=== PATIENT | female | born 1945 | race Caucasian/White ===

== ENCOUNTER → 2016-10-19 | Outpatient (REF) | payer MEDICARE | LOC: M LAB REF 09:09 | PROVIDERS: ATTEND Physician Assistant | DX: J03.90 Acute tonsillitis, unspecified (principal) ==

== ENCOUNTER → 2017-02-10 | Outpatient (CLI) | payer MEDICARE ==
--- NOTE | 2017-02-11 06:45 | REP ---
RIGHT SHOULDER, THREE VIEWS: HISTORY: Contusion. COMPARISON: 04/03/2011. There is no acute fracture or dislocation. There is narrowing of the acromioclavicular joint with associated osteophyte formation. IMPRESSION: Degenerative change as described above. Signed by Andrés Nicole MD 02/11/2017 08:27 A
== END ==
LOC: M WUC 16:22
PROVIDERS: ATTEND Physician Assistant
DX: S40.011A Contusion of right shoulder, initial encounter (principal); X58.XXXA Exposure to other specified factors, initial encounter; Y93.9 Activity, unspecified; Y92.9 Unspecified place or not applicable; Y99.8 Other external cause status

== ENCOUNTER → 2017-05-28 | Outpatient (REF) | payer MEDICARE | LOC: M LAB REF 09:20 | PROVIDERS: ATTEND Physician Assistant | DX: R30.0 Dysuria (principal) ==

== ENCOUNTER 2017-12-10 11:10 | Emergency (ER) | payer MEDICARE ==
[2017-12-10 12:10] LABS: BASO # 0.1 10^3/uL (0.0-0.2); BASO % 0.6 % (0.0-1.0); EOS # 0.2 10^3/uL (0.0-0.50); EOS % 2.7 % (0.0-3.0); HEMATOCRIT 37.7 % (36.0-47.0); HEMOGLOBIN 12.4 g/dl (12.0-15.5); IMMATURE GRANULOCYTE % 0.3 % (0-3.0); LYMPH # 2.4 10^3/uL (1.5-4.5); LYMPH % 31.4 % (24.0-44.0); MEAN CORPUSCULAR HEMOGLOBIN 30.2 pg (27.0-33.0); MEAN CORPUSCULAR HGB CONC 32.9 g/dl (32.0-36.5); MONO # 0.6 10^3/uL (0.0-0.8); MONO % 7.9 % (0.0-5.0); NEUTROPHILS # 4.4 10^3/uL (1.8-7.7); NEUTROPHILS % 57.1 % (36.0-66.0); PLATELET COUNT, AUTOMATED 222 10^3/uL (150-450); RED CELL DISTRIBUTION WIDTH 12.6 % (11.5-14.5); WHITE BLOOD COUNT 7.8 10^3/uL (4.0-10.0)
[2017-12-10 12:25] LABS: INR 0.98; PROTHROMBIN TIME 13.1 SECONDS (12.4-14.5)
[2017-12-10 12:26] LABS: PARTIAL THROMBOPLASTIN TIME 37.1 SECONDS (26.8-37.9)
[2017-12-10 13:01] LABS: ANION GAP 7 MEQ/L (8-16); BLOOD UREA NITROGEN 15 MG/DL (7-18); CALCIUM LEVEL 8.7 MG/DL (8.8-10.2); CARBON DIOXIDE LEVEL 26 MEQ/L (21-32); CHLORIDE LEVEL 106 MEQ/L (98-107); CK-MB VALUE MASS 1.1 NG/ML (<3.6); CPK CREATINE PHOSPHOKINASE 90 U/L (26-192); CREATININE FOR GFR 0.84 MG/DL (0.55-1.30); GLOMERULAR FILTRATION RATE > 60.0 (>39); GLUCOSE, FASTING 187 MG/DL (70-100); MB/CK RELATIVE INDEX 1.22 (< OR =4); POTASSIUM SERUM 4.3 MEQ/L (3.5-5.1); SODIUM LEVEL 139 MEQ/L (136-145); TROPONIN I < 0.02 NG/ML (< 0.10)
[2017-12-10] MEDS: AZITHROMYCIN 250 MG TAB PO (15:39)
== END 2017-12-10 17:45 | disposition home or self-care (01) ==
LOC: M ED 11:10
DX: H53.9 Unspecified visual disturbance (principal); R91.8 Other nonspecific abnormal finding of lung field; I67.82 Cerebral ischemia; I65.23 Occlusion and stenosis of bilateral carotid arteries; I10 Essential (primary) hypertension; J44.9 Chronic obstructive pulmonary disease, unspecified; J45.909 Unspecified asthma, uncomplicated; E78.5 Hyperlipidemia, unspecified; K22.70 Barrett's esophagus without dysplasia; R73.03 Prediabetes; Z91.040 Latex allergy status; Z88.2 Allergy status to sulfonamides; Z79.899 Other long term (current) drug therapy; Z79.82 Long term (current) use of aspirin; Z79.51 Long term (current) use of inhaled steroids; Z79.84 Long term (current) use of oral hypoglycemic drugs
CPT/HCPCS: 70551

== ENCOUNTER 2018-07-02 16:12 | Emergency (ER) | payer MEDICARE ==
[2018-07-02] MEDS: ACETAMINOPHEN 325 MG TAB PO (19:10)
== END 2018-07-02 19:31 | disposition home or self-care (01) ==
LOC: M ED 16:12
DX: S63.501A Unspecified sprain of right wrist, initial encounter (principal); S00.83XA Contusion of other part of head, initial encounter; S60.041A Contusion of right ring finger without damage to nail, initial encounter; W19.XXXA Unspecified fall, initial encounter; Y92.092 Bedroom in other non-institutional residence as the place of occurrence of the external cause; Y93.89 Activity, other specified; Y99.9 Unspecified external cause status; I10 Essential (primary) hypertension; E78.5 Hyperlipidemia, unspecified; J44.9 Chronic obstructive pulmonary disease, unspecified; Z87.891 Personal history of nicotine dependence; Z79.82 Long term (current) use of aspirin; Z79.84 Long term (current) use of oral hypoglycemic drugs; Z79.899 Other long term (current) drug therapy; Z88.1 Allergy status to other antibiotic agents; Z91.040 Latex allergy status
CPT/HCPCS: 73110

== ENCOUNTER → 2018-07-08 | Outpatient (CLI) | payer MEDICARE | LOC: M WUC 15:26 | DX: M25.531 Pain in right wrist (principal); S60.211S Contusion of right wrist, sequela | CPT/HCPCS: 73110 ==

== ENCOUNTER → 2018-08-08 | Outpatient (CLI) | payer MEDICARE | LOC: M RAD 09:27 | DX: Z12.31 Encounter for screening mammogram for malignant neoplasm of breast (principal); Z79.899 Other long term (current) drug therapy; R92.1 Mammographic calcification found on diagnostic imaging of breast | CPT/HCPCS: 77067 ==

== ENCOUNTER 2018-12-19 09:46 | Day surgery (SDC) | payer MEDICARE ==
[~2018-12-19] VITALS: Ht 152.4 cm; Wt 81.6 kg
[~2018-12-19 09:46] MED LIST: ASPI-1 PO; ASPI81TA26 PO; AZIT-12 PO; CENT1TAB PO; CLAR10CA3 PO; CYCL5TAB PO; DULE100A INH; K-TA10TA2 PO; LASI40TA9 PO; LEG1TAB PO; LISI-538 PO; LISI20TA PO; LISINOP/HCTZ; MAGN64TASA PO; MECL1CHW PO; METF500T13 PO; MIRA3350 PO; NITR-67 PO; NS 1,000 ML IV ONE; OMEP40CA2 PO; PRAV40TA2 PO; PROAAER10 INH; PROBCAP14 PO; VITA100067 PO
--- NOTE | 2018-12-19 11:21 | ROOR ---
Patient Name: Jaimie Villalta Procedure Date: 12/19/2018 11:03 AM Date of : 1945 Age: 73 Room: [facility] Gender: Female Note Status: Finalized Procedure: Upper GI endoscopy Indications: Heartburn Providers: Brijesh LOVE MD Referring MD: YRIS CATES MD Requesting Provider: Medicines: Monitored Anesthesia Care Complications: No immediate complications. Procedure: Pre-Anesthesia Assessment: - The heart rate, respiratory rate, oxygen saturations, blood pressure, adequacy of pulmonary ventilation, and response to care were monitored throughout the procedure. The Endoscope was introduced through the mouth, and advanced to the second part of duodenum. The upper GI endoscopy was accomplished without difficulty. The patient tolerated the procedure well. Findings: The Z-line was variable and was found at the gastroesophageal junction. This was biopsied with a cold forceps for histology. The examined esophagus was normal. Small Hiatal Hernia. The entire examined stomach was normal. (large compliant) The examined duodenum was normal. Impression: - Z-line variable, at the gastroesophageal junction. Biopsied. - Normal esophagus. - Small Hiatal Hernia. - Normal stomach. - Normal examined duodenum. Recommendation: - Gastroparesis diet: - Eat smaller, more frequent meals throughout the day. - Low fat diet. - Liquid/soft foods are tolerated better than solid foods. - Low fiber/well cooked vegetables are tolerated better than high fiber/fibrous foods/raw vegetables. - Avoid medications that inhibit gastric/intestinal motility such as narcotic medications. Birjesh Love MD Brijesh LOEV MD 12/19/2018 11:21:16 AM Electronically signed by Brijesh LOVE MD Number of Addenda: 0 Note Initiated On: 12/19/2018 11:03 AM Estimated Blood Loss: Estimated blood loss: none.
[2018-12-19] MEDS ORDERED: PROPOFOL 200 MG/20 ML VIAL As Ordered ONE ×2 (11:24→11:36)
[2018-12-19] MEDS ORDERED: LIDOCAINE 2% INJ 100 MG/5 ML SDV (FOR ANES.) As Ordered ONE (11:24)
--- NOTE | 2018-12-19 11:47 | ROOR ---
Patient Name: Jaimie Villalta Procedure Date: 12/19/2018 11:04 AM Date of : 1945 Age: 73 Room: [facility] Gender: Female Note Status: Finalized Procedure: Colonoscopy Indications: Generalized abdominal pain Providers: Brijesh LOVE MD Referring MD: YRIS CATES MD Requesting Provider: Medicines: Monitored Anesthesia Care Complications: No immediate complications. Procedure: Pre-Anesthesia Assessment: - The heart rate, respiratory rate, oxygen saturations, blood pressure, adequacy of pulmonary ventilation, and response to care were monitored throughout the procedure. The Colonoscope was introduced through the anus and advanced to the terminal ileum, with identification of the appendiceal orifice and IC valve. The colonoscopy was performed without difficulty. The patient tolerated the procedure well. The quality of the bowel preparation was good. Findings: The perianal and digital rectal examinations were normal. Two sessile polyps were found in the cecum. The polyps were diminutive in size. These polyps were removed with a cold snare. Resection and retrieval were complete. The ileocecal valve was mildly lipomatous. This was biopsied with a cold forceps for histology. Multiple medium-mouthed diverticula were found in the sigmoid colon. Small Internal Hemorrhoids. The colon and terminal ileum are otherwise without abnormality on direct and retroflexion views. Impression: - Two diminutive polyps in the cecum, removed with a cold snare. Resected and retrieved. - Lipomatous/polypoid ileocecal valve. Biopsied to r/o adenoma. - Moderate diverticulosis in the sigmoid colon. - Small Internal Hemorrhoids. - The colon and terminal ileum are otherwise normal on direct and retroflexion views. Recommendation: - Continue present medications. - Telephone endoscopist for pathology results in 2 weeks. - Repeat colonoscopy in 5 years for surveillance. Brijesh Love MD Brijesh LOVE MD 12/19/2018 11:46:35 AM Electronically signed by Brijesh LOVE MD Number of Addenda: 0 Note Initiated On: 12/19/2018 11:04 AM Estimated Blood Loss: Estimated blood loss: none.
[2018-12-19 12:10] VITALS: BP 123/66
== END 2018-12-19 12:21 | disposition home or self-care (01) ==
LOC: M OPP 09:46
PROVIDERS: ATTEND Internal Medicine Gastroenterology
DX: D12.0 Benign neoplasm of cecum (principal); K57.30 Diverticulosis of large intestine without perforation or abscess without bleeding; K64.8 Other hemorrhoids; K63.89 Other specified diseases of intestine; R10.84 Generalized abdominal pain; K22.8 Other specified diseases of esophagus; R12 Heartburn

== ENCOUNTER → 2019-07-04 | Outpatient (REF) | payer MEDICARE ==
[~2019-07-04] MED LIST changes: -LISI20TA PO; +LISI20TA19 PO; -NS 1,000 ML IV ONE; -OMEP40CA2 PO; +OMEP40CA97 PO
== END ==
LOC: M LAB REF 08:58
PROVIDERS: ATTEND Physician Assistant
DX: N39.0 Urinary tract infection, site not specified (principal)

== ENCOUNTER → 2020-06-13 | Outpatient (CLI) | payer MEDICARE ==
[~2020-06-13] MED LIST changes: -LISI20TA19 PO; +LISI20TA35 PO
--- NOTE | 2020-06-20 15:17 | REP ---
ABDOMINAL SERIES HISTORY: Abdominal distention. FINDINGS: Supine and erect views of the abdomen and pelvis demonstrate no evidence of free intraperitoneal air. There is no evidence of ileus or obstruction. No dilated small bowel loops are seen. Metallic clips are seen in the right upper quadrant. There are two phleboliths in the left pelvis. There are mild degenerative changes of the spine and hips. A PA view of the chest demonstrates chronic left basilar opacity likely representing pleural and parenchymal scarring. I see no acute infiltrate. Heart does not appear to be significantly enlarged. There is calcification and tortuosity of the thoracic aorta. The mediastinal silhouette is unchanged. IMPRESSION: No free air or obstruction. Chronic changes in the lungs. MTDD
== END ==
LOC: M WUC 15:54
PROVIDERS: ATTEND Internal Medicine
DX: R14.0 Abdominal distension (gaseous) (principal); M47.9 Spondylosis, unspecified; M16.0 Bilateral primary osteoarthritis of hip; I70.0 Atherosclerosis of aorta

== ENCOUNTER → 2021-05-24 | Outpatient (REF) | payer MEDICARE ==
[~2021-05-24] MED LIST changes: -LISI-538 PO; +LISI20TA33 PO; +OMEP40CA4 PO; -OMEP40CA97 PO
== END ==
LOC: M LAB REF 09:54
PROVIDERS: ATTEND Specialist
DX: N39.0 Urinary tract infection, site not specified (principal)

== ENCOUNTER → 2021-06-30 | Outpatient (REF) | payer MEDICARE | LOC: M LAB REF 12:09 | PROVIDERS: ATTEND Specialist | DX: N39.0 Urinary tract infection, site not specified (principal) ==

== ENCOUNTER → 2021-09-03 | Outpatient (REF) | payer MEDICARE | LOC: M LAB REF 11:27 | PROVIDERS: ATTEND Specialist | DX: N39.0 Urinary tract infection, site not specified (principal) ==

== ENCOUNTER → 2021-11-08 | Outpatient (CLI) | payer MEDICARE | LOC: M WUC 09:47 | PROVIDERS: ATTEND Internal Medicine | DX: R06.00 Dyspnea, unspecified (principal) ==

== ENCOUNTER 2021-12-25 15:48 | Observation (INO) | payer MEDICARE ==
[~2021-12-25] VITALS: Ht 154.9 cm; Wt 79.8 kg
[2021-12-25] MEDS ORDERED: METF850T4 PO (16:46)
[2021-12-25] MEDS ORDERED: OMEP40CA5 PO (16:46)
[2021-12-25] MEDS ORDERED: MECL-86 PO (16:46)
[2021-12-25] MEDS ORDERED: FLUT11IN INH (16:46)
[2021-12-25] MEDS ORDERED: HOME MED LIST COMPLETE! XX SCH (16:50)
[2021-12-25 17:19] LABS: BASO # 0.1 10^3/uL (0.0-0.2); BASO % 0.9 % (0.0-1.0); EOS # 0.1 10^3/uL (0.0-0.5); EOS % 1.9 % (0.0-3.0); HEMATOCRIT 36.3 % (36.0-47.0); HEMOGLOBIN 11.6 g/dl (12.0-15.5); LYMPH # 2.3 10^3/uL (1.5-5.0); LYMPH % 32.9 % (24.0-44.0); MEAN CORPUSCULAR HEMOGLOBIN 28.2 pg (27.0-33.0); MEAN CORPUSCULAR VOLUME 88.3 fl (80.0-96.0); MONO # 0.6 10^3/uL (0.0-0.8); MONO % 8.9 % (2.0-8.0); NEUTROPHILS # 3.8 10^3/uL (1.5-8.5); NEUTROPHILS % 55.1 % (36.0-66.0); PLATELET COUNT, AUTOMATED 188 10^3/uL (150-450); RED BLOOD COUNT 4.11 10^6/uL (4.00-5.40); WHITE BLOOD COUNT 6.8 10^3/uL (4.0-10.0)
[2021-12-25 17:37] LABS: INR 1.03; PROTHROMBIN TIME 13.9 SECONDS (12.7-14.5)
[2021-12-25 17:38] LABS: PARTIAL THROMBOPLASTIN TIME 33.2 SECONDS (25.9-37.0)
[2021-12-25 17:45] LABS: ALBUMIN 3.6 GM/DL (3.2-5.2); ALT/SGPT 33 U/L (12-78); BILIRUBIN,DIRECT 0.2 MG/DL (0.0-0.2); BILIRUBIN,TOTAL 0.6 MG/DL (0.2-1.0); BLOOD UREA NITROGEN 20 MG/DL (7-18); CALCIUM LEVEL 9.4 MG/DL (8.8-10.2); CARBON DIOXIDE LEVEL 21 MEQ/L (21-32); CHLORIDE LEVEL 109 MEQ/L (98-107); CREATININE FOR GFR 0.93 MG/DL (0.55-1.30); GLOMERULAR FILTRATION RATE > 60.0 (>39); GLUCOSE, FASTING 163 MG/DL (70-100); NT-PRO BNP 57 PG/ML (<450); POTASSIUM SERUM 4.3 MEQ/L (3.5-5.1); SODIUM LEVEL 139 MEQ/L (136-145); TOTAL PROTEIN 7.1 GM/DL (6.4-8.2)
[2021-12-25 18:36] LABS: RSV AMPLIFICATION NEGATIVE (NEGATIVE)
[2021-12-25 20:00] VITALS: BP 162/64
[2021-12-25] MEDS ORDERED: hydroCHLOROthiazide 12.5 MG CAPSULE PO ONE (21:30)
[2021-12-25 21:38] VITALS: BP 138/54
[2021-12-25 23:48] VITALS: BP 154/60
[2021-12-26] VITALS (9 sets, daily range): BP systolic 122–157; BP diastolic 57–72
[2021-12-26] MEDS ORDERED: LR 1,000 ML IV SCH ×2 (06:20→19:00)
[2021-12-26] MEDS ORDERED: ceFAZolin SOD 2 GM in IV 1 EA IV ONE ×2 (06:20→15:05)
[2021-12-26] MEDS ORDERED: ONDANSETRON 4MG/2ML VIAL As Ordered ONE (16:08)
[2021-12-26] MEDS ORDERED: fentaNYL 100 MCG/2 ML INJECTION As Ordered ONE (16:08)
[2021-12-26] MEDS ORDERED: MIDAZOLAM INJ 2MG/2ML VIAL (J2250 PER 1MG) As Ordered ONE (16:08)
[2021-12-26] MEDS ORDERED: LIDOCAINE 2% 100MG/5ML SDV (FOR ANES.) As Ordered ONE (16:08)
[2021-12-26] MEDS ORDERED: propofoL 200 MG/20 ML VIAL As Ordered ONE (16:08)
[2021-12-26] MEDS ORDERED: ISOVUE-300 61% 50ML VIAL As Ordered ONE (17:12)
[2021-12-26] MEDS ORDERED: BACITRACIN OINTMENT 30GM TUBE As Ordered ONE (17:12)
[2021-12-26] MEDS ORDERED: LIDOCAINE 1% SDV 30ML VIAL As Ordered ONE (17:12)
[2021-12-26] MEDS ORDERED: fentaNYL 100 MCG/2 ML INJECTION IV PRN (19:00)
[2021-12-26] MEDS ORDERED: oxyCODONE 5MG TAB PO PRN (19:00)
[2021-12-26] MEDS ORDERED: ONDANSETRON 4MG/2ML VIAL IV PRN (19:00)
[2021-12-26] MEDS: ACETAMINOPHEN TAB 650MG DOSE (2X325MG) PO PRN (20:29)
[2021-12-26] MEDS: traMADol 50 MG TAB PO PRN (22:27)
[2021-12-27] VITALS: BP 122/59
[2021-12-27 01:00] VITALS: BP 112/58
[2021-12-27] MEDS: ceFAZolin SOD 1 GM in D5W MINI-BAG PLUS 50 ML IV SCH ×3 (01:49→17:30)
[2021-12-27] MEDS: ACETAMINOPHEN TAB 650MG DOSE (2X325MG) PO PRN ×3 (01:49→16:10)
[2021-12-27 04:00] VITALS: BP 130/59
[2021-12-27 07:55] VITALS: BP 117/57
[2021-12-27] MEDS: metFORMIN (GLUCOPHAGE) 500MG TAB PO SCH ×2 (08:27→17:30)
[2021-12-27 11:52] VITALS: BP 126/66
[2021-12-27] MEDS: traMADol 50 MG TAB PO PRN (12:21)
[2021-12-27 15:50] VITALS: BP 136/65
== END 2021-12-27 19:55 | disposition home or self-care (01) ==
LOC: M ED 15:48 → M ED INP 15:49 → ENRESERV 18:39 → M PCU 20:00
PROVIDERS: ADMIT Internal Medicine Cardiovascular Disease; ATTEND Internal Medicine Cardiovascular Disease
DX: I44.1 Atrioventricular block, second degree (principal); R55 Syncope and collapse; R00.2 Palpitations; I11.9 Hypertensive heart disease without heart failure; R94.31 Abnormal electrocardiogram [ECG] [EKG]; E78.00 Pure hypercholesterolemia, unspecified; E11.9 Type 2 diabetes mellitus without complications; Z88.2 Allergy status to sulfonamides; Z88.8 Allergy status to other drugs, medicaments and biological substances; Z91.040 Latex allergy status; Z79.899 Other long term (current) drug therapy
CPT/HCPCS: 33208; 71045; 71046; 76000; 80048; 80076; 83880; 84443; 85025; 85610; 85730; 87631; 93005; 93041; 94760; 96365; 96366; 96375; 99285; C1785; C1898; G0378; J0690; J2250; J2405; J3010

== ENCOUNTER → 2022-09-26 | Outpatient (CLI) | payer MEDICARE ==
[~2022-09-26] MED LIST changes: +FLUT11IN INH; +MECL-86 PO; +METF850T4 PO; +OMEP40CA5 PO
== END ==
LOC: M WUC 13:42
PROVIDERS: ATTEND Internal Medicine
DX: M25.542 Pain in joints of left hand (principal); M19.142 Post-traumatic osteoarthritis, left hand; M77.8 Other enthesopathies, not elsewhere classified

== ENCOUNTER 2023-04-22 06:39 | Day surgery (SDC) | payer MEDICARE, OTHER ==
[~2023-04-22] VITALS: Ht 152.4 cm; Wt 82.1 kg
[~2023-04-22 06:39] MED LIST changes: +ALLO100T PO; +CETI10CA13 PO; -DULE100A INH; -FLUT11IN INH; +FLUT12AE6 INH; +IRON27TA2 PO; -K-TA10TA2 PO; +MOME13HF8 INH; +NS 1,000 ML IV ONE; +POTA-165 PO; +PROA1AER2 INH
[2023-04-22] MEDS ORDERED: propofoL 500 MG/50 ML VIAL As Ordered ONE (07:01)
[2023-04-22] MEDS ORDERED: LIDOCAINE 2% 100MG/5ML SDV (FOR ANES.) As Ordered ONE (07:02)
[2023-04-22] MEDS ORDERED: fentaNYL 100 MCG/2 ML INJECTION As Ordered ONE (07:07)
[2023-04-22] MEDS ORDERED: ePHEDrine SULFATE 25 MG/5 ML(5MG/ML) SYRINGE As Ordered ONE (08:00)
[2023-04-22 08:28] VITALS: BP 157/73; O2SAT 95
== END 2023-04-22 08:30 | disposition home or self-care (01) ==
LOC: M OPP 06:39
PROVIDERS: ATTEND Internal Medicine Gastroenterology
DX: Z86.010 Personal history of colon polyps (principal); D12.5 Benign neoplasm of sigmoid colon; K63.5 Polyp of colon; K57.30 Diverticulosis of large intestine without perforation or abscess without bleeding; K64.8 Other hemorrhoids; K22.89 Other specified disease of esophagus; K22.70 Barrett's esophagus without dysplasia
CPT/HCPCS: 43239; 45385; 88305; J3010

== ENCOUNTER → 2024-09-07 | Outpatient (CLI) | payer MEDICARE ==
[~2024-09-07] MED LIST changes: -CYCL5TAB PO; +CYCL5TAB4 PO; -NS 1,000 ML IV ONE
== END ==
LOC: M RAD 13:32
PROVIDERS: ATTEND Internal Medicine
DX: D38.1 Neoplasm of uncertain behavior of trachea, bronchus and lung (principal)

== ENCOUNTER 2024-09-22 09:13 | Day surgery (SDC) | payer MEDICARE ==
[~2024-09-22] VITALS: Ht 152.4 cm; Wt 82.6 kg
[~2024-09-22 09:13] MED LIST changes: +ATOR40TA75 PO; +LISI10TA22 PO; +LISI10TA24 PO; +QVAR40AE12 IN; +leg cramp PO
[2024-09-22 11:23] VITALS: TEMP 97
[2024-09-22 11:44] VITALS: BP 144/65; O2SAT 95
== END 2024-09-22 11:45 | disposition home or self-care (01) ==
LOC: M OPP 09:13
PROVIDERS: ATTEND Internal Medicine Gastroenterology
DX: D12.0 Benign neoplasm of cecum (principal); D50.9 Iron deficiency anemia, unspecified; K57.30 Diverticulosis of large intestine without perforation or abscess without bleeding; K64.8 Other hemorrhoids; K22.89 Other specified disease of esophagus; K31.819 Angiodysplasia of stomach and duodenum without bleeding; Z95.0 Presence of cardiac pacemaker; Z91.040 Latex allergy status; Z91.048 Other nonmedicinal substance allergy status; Z88.2 Allergy status to sulfonamides; Z88.8 Allergy status to other drugs, medicaments and biological substances; Z79.82 Long term (current) use of aspirin; Z79.84 Long term (current) use of oral hypoglycemic drugs; Z79.899 Other long term (current) drug therapy; J45.909 Unspecified asthma, uncomplicated; Z95.2 Presence of prosthetic heart valve

== ENCOUNTER → 2024-09-29 | Outpatient (CLI) | payer MEDICARE | LOC: M RAD 09:25 | PROVIDERS: ATTEND Physician Assistant | DX: K55.1 Chronic vascular disorders of intestine (principal); I77.4 Celiac artery compression syndrome ==

== ENCOUNTER → 2024-10-01 | Outpatient (CLI) | payer MEDICARE ==
[~2024-10-01] MED LIST changes: +ISOVUE-370 76% 100ML VIAL As Ordered ONE
== END ==
LOC: M RAD 11:49
PROVIDERS: ATTEND Internal Medicine Gastroenterology
DX: D50.9 Iron deficiency anemia, unspecified (principal); N28.1 Cyst of kidney, acquired; Z90.49 Acquired absence of other specified parts of digestive tract; K57.30 Diverticulosis of large intestine without perforation or abscess without bleeding; I70.0 Atherosclerosis of aorta
CPT/HCPCS: 74177; Q9967

== ENCOUNTER → 2024-12-18 | Outpatient (CLI) | payer MEDICARE | LOC: M RAD 09:16 | PROVIDERS: ATTEND Surgery Vascular Surgery | DX: K55.1 Chronic vascular disorders of intestine (principal); Z95.2 Presence of prosthetic heart valve; Z95.0 Presence of cardiac pacemaker; K76.0 Fatty (change of) liver, not elsewhere classified; I70.1 Atherosclerosis of renal artery; Z90.49 Acquired absence of other specified parts of digestive tract; N28.1 Cyst of kidney, acquired | CPT/HCPCS: 74175; Q9967 ==

== ENCOUNTER → 2025-03-15 | Outpatient (CLI) | payer MEDICARE ==
[~2025-03-15] MED LIST changes: -ISOVUE-370 76% 100ML VIAL As Ordered ONE; -PRAV40TA2 PO; +PRAV40TA85 PO
== END ==
LOC: M RAD 09:08
PROVIDERS: ATTEND Physician Assistant
DX: K55.1 Chronic vascular disorders of intestine (principal); I70.1 Atherosclerosis of renal artery

== ENCOUNTER → 2025-04-26 | Outpatient (CLI) | payer MEDICARE | LOC: M RAD 09:14 | PROVIDERS: ATTEND Physician Assistant | DX: I70.1 Atherosclerosis of renal artery (principal); R93.89 Abnormal findings on diagnostic imaging of other specified body structures ==